=== PATIENT | male | born 1995 | race Hispanic/Latino ===

== ENCOUNTER 2017-06-13 00:25 | Emergency (ER) | payer OTHER ==
[~2017-06-13] VITALS: Ht 167.6 cm; Wt 93.0 kg
[2017-06-13] MEDS ORDERED: PANTOPRAZOLE 40 MG 10ML VIAL IV STA (00:31)
[2017-06-13] MEDS ORDERED: ONDANSETRON HCL INJ 2 MG/ML VIAL IV STA (00:31)
[2017-06-13 00:49] LABS: BASOPHILS # (AUTO) 0.1 (0.0-0.1); BASOPHILS % 0.6 % (0.0-1.0); CLARITY,URINE CLEAR (CLEAR); COLOR,URINE YELLOW (YELLOW); EOSINOPHILS # (AUTO) 0.1 (0.0-0.4); EOSINOPHILS % 0.9 % (0.0-6.0); HEMATOCRIT 45.7 % (38.2-49.6); HEMOGLOBIN 16.5 g/dL (14.0-18.0); KETONES,URINE TRACE (NEGATIVE); LYMPHOCYTES % 22.3 % (18.0-39.1); MEAN CORPUSCULAR HEMOGLOBIN 30.8 pg (28-32); MEAN CORPUSCULAR HGB CONC 36.1 g/dL (31-35); MEAN CORPUSCULAR VOLUME 85.3 fL (81-99); MONOCYTES # (AUTO) 0.5 (0.2-0.8); MONOCYTES % 5.4 % (4.4-11.3); NEUTROPHILS # (AUTO) 6.4 (2.1-6.9); NEUTROPHILS % 70.6 % (38.7-80.0); PLATELET COUNT 237 x10e3/uL (140-360); RED BLOOD COUNT 5.36 x10e6/uL (4.3-5.7); RED CELL DISTRIBUTION WIDTH 12.1 % (11.7-14.4); URINE UROBILINOGEN 1 mg/dL (0.2 - 1)
[2017-06-13 00:54] LABS: LEUKOCYTE ESTERASE ,URINE NEGATIVE (NEGATIVE)
[2017-06-13 00:55] LABS: BILIRUBIN,URINE NEGATIVE (NEGATIVE); NITRITE,URINE NEGATIVE (NEGATIVE); PROTEIN,URINE DIPSTICK NEGATIVE (NEGATIVE)
[2017-06-13 01:05] LABS: BACTERIA,URINE MODERATE /HPF; EPITHELIAL CELLS,URINE RARE /LPF; WBC,URINE (MAN) 0-5 /HPF (0-5)
[2017-06-13 01:06] LABS: ALANINE AMINOTRANSFERASE 42 IU/L (0-55); ALBUMIN 4.6 g/dL (3.5-5.0); ALBUMIN/GLOBULIN RATIO 1.6 (0.8-2.0); ALKALINE PHOSPHATASE 61 IU/L (40-150); AMYLASE 64 U/L (25-125); ANION GAP 11.7 mmol/L (8-16); BLOOD UREA NITROGEN 15 mg/dL (7-26); BUN/CREATININE RATIO 15 (6-25); CALCIUM 9.4 mg/dL (8.4-10.2); CARBON DIOXIDE 25 mmol/L (22-29); CHLORIDE 104 mmol/L (98-107); CREATININE, SERUM 0.98 mg/dL (0.72-1.25); EST GLOMERULAR FILTRATION RATE > 60 ML/MIN (60-); GLUCOSE 79 mg/dL (74-118); LIPASE 26 U/L (8-78); POTASSIUM 3.7 mmol/L (3.5-5.1); SODIUM 137 mmol/L (136-145)
--- NOTE | 2017-06-13 01:34 | Diagnostic Imaging Report ---
CHEST SINGLE (PORTABLE), 06/13/2017 12:31 AM Technique: CHEST SINGLE (PORTABLE) Comparison: None available. Clinical history: Chest pain Findings: See Impression Impression: 1. Prominent cardiac silhouette, accentuated by portable technique. 2. Right paraspinal opacity, which may be artifactual. Recommend upright PA and lateral for better evaluation. 2. No consolidation, pleural effusion or pneumothorax. Signed by: Dr Isis Jang MD on 06/13/2017 1:30 AM
--- NOTE | 2017-06-13 02:09 | Diagnostic Imaging Report ---
EXAM: CT CHEST WO DATE: 06/13/2017 1:37 AM INDICATION: Finding on plain film, chest pain COMPARISON: None TECHNIQUE: Multidetector CT scanning of the chest was performed. Coronal and sagittal multiplanar reformations were obtained. IV Contrast: 0 ml Isovue 370/300 FINDINGS: LUNGS AND PLEURA: No consolidations or edema or masses. Nonspecific 2 mm left lower lobe nodule. No effusions or pneumothorax. HEART, MEDIASTINUM, VESSELS: Normal heart size. No pericardial effusion. No adenopathy. UPPER ABDOMEN: Unremarkable. MUSCULOSKELETAL: No acute findings. IMPRESSION: No masses or acute abnormality. Signed by: Dr Isis Jang MD on 06/13/2017 2:06 AM
== END 2017-06-13 02:31 | disposition home or self-care (01) ==
LOC: ER 00:25
DX: R10.13 Epigastric pain (principal); R11.2 Nausea with vomiting, unspecified; K21.0 Gastro-esophageal reflux disease with esophagitis
CPT/HCPCS: 36415; 71045; 71250; 80053; 81001; 82150; 83690; 85025; 99284; J2405

== ENCOUNTER 2017-12-09 20:19 | Emergency (ER) | payer OTHER ==
[~2017-12-09] VITALS: Ht 167.6 cm; Wt 93.0 kg
[2017-12-09] MEDS ORDERED: DONNATAL/LIDOCAINE/MAALOX 30 ML SUSP PO ONE (21:30)
[2017-12-09] MEDS ORDERED: BELLADONNA ALK/PHENOBARBITAL 5 ML UDC ONE (21:34)
[2017-12-09] MEDS ORDERED: MAGNESIUM/ALUMINUM/SIMETHICONE 30 ML UDC ONE (21:34)
[2017-12-09] MEDS ORDERED: LIDOCAINE VISC 2% SOLN 15 ML UDC ONE (21:34)
[2017-12-09 22:25] VITALS: BP 134/79
[2017-12-09] MEDS ORDERED: RANITIDINE HCL75 MG PO (22:27)
[2017-12-09] MEDS ORDERED: MAALOX ADVANCE1 EACH PO (22:28)
== END 2017-12-09 22:39 | disposition home or self-care (01) ==
LOC: ER 20:19
DX: R11.10 Vomiting, unspecified (principal); K21.0 Gastro-esophageal reflux disease with esophagitis
CPT/HCPCS: 99283